=== PATIENT | female | born 1965 | race Hispanic/Latino ===

== ENCOUNTER → 2016-12-04 | Outpatient (CLI) | payer BC ==
[~2016-12-04] MED LIST: AMOXICILLIN500 MG PO; BENADRYL50 MG PO; CYANOCOBALAM1000 MCG PO; CYCLOBENZAPRINE10 MG PO; FLAGYL500 MG PO; IBUPROFEN400 MG PO; KEFLEX500 MG PO; LIDOCAINE700 MG TD; LORCET 5-325 M1 EACH PO; LORTAB 5-325 M1 EACH PO; PHENAZOPYRIDIN100 MG PO; PREDNISONE10 MG PO; PROTONIX40 MG PO; PYRIDIUM100 MG PO; TORADOL10 MG PO; VITAMIN C500 M1 PO; VITAMIN E100 UNIT PO
== END | disposition home or self-care (01) ==
LOC: CDC 14:47
DX: R94.31 Abnormal electrocardiogram [ECG] [EKG] (principal); R07.9 Chest pain, unspecified
CPT/HCPCS: 93000

== ENCOUNTER 2016-12-26 18:54 | Emergency (ER) | payer BC ==
[~2016-12-26] VITALS: Ht 162.6 cm; Wt 108.4 kg
[2016-12-26 19:57] LABS: HEMATOCRIT 39.7 % (36.0-46.0); MCH 31.3 PG (29.0-34.0); MCHC 34.5 G/DL (30.0-36.0); MCV 90.6 FL (83-99); MEAN PLAT.VOLUME 10.6 uM^3 (9.5-12.4); PLATELET COUNT 248 K/uL (156-360); RBC DIS.WIDTH-SD 38.8 % (39-53); RED BLOOD COUNT 4.38 M/uL (3.80-5.20); WHITE BLOOD COUNT 6.2 K/uL (4.1-10.2)
[2016-12-26 20:09] LABS: CHLORIDE 103 mEq/L (99-109); POTASSIUM 3.6 mEq/L (3.7-5.4); SODIUM 139 mEq/L (136-147)
[2016-12-26 20:11] LABS: GLUCOSE 102 mg/dL (70-99)
[2016-12-26 20:12] LABS: ANION GAP 14 MEQ/L (2-14)
[2016-12-26 20:13] LABS: TOTAL BILIRUBIN 0.6 mg/dL (0.0-1.0)
[2016-12-26 20:14] LABS: ALKALINE PHOSPHATASE 111 IU/L (3-129)
[2016-12-26 20:15] LABS: GFR ESTIMATE (CALCULATED) > 59 mL/min/
[2016-12-26 20:16] LABS: UREA NITROGEN (BUN) 14 mg/dL (9-23)
[2016-12-26 20:18] LABS: LIPASE 26 U/L (1.0-51.0)
[2016-12-26 20:24] LABS: QUANTITATIVE HCG < 4.0 MIU/ML
[2016-12-26 21:45] LABS: ADD MIUA? NO; BILIRUBIN NEGATIVE; BLOOD NEGATIVE; COLOR STRAW ((YELLOW)); GLUCOSE (STRIP) NEGATIVE; KETONES 5; LEUKOCYTES NEGATIVE; NITRITE NEGATIVE; PROTEIN (STRIP) NEGATIVE; SPECIFIC GRAVITY 1.008 (1.000-1.030); UCUL ADDED? NO; UROBILINOGEN 0.2 MG/DL (0.2-1.0)
[2016-12-27] MEDS ORDERED: PERCOCET 5/31 TABLET PO (01:41)
[2016-12-27] MEDS ORDERED: REGLAN10 MG PO (01:42)
[2016-12-27 01:55] VITALS: BP 138/72
== END 2016-12-27 02:05 | disposition home or self-care (01) ==
LOC: EME 18:54
DX: R10.10 Upper abdominal pain, unspecified (principal); R10.13 Epigastric pain; T50.995A Adverse effect of other drugs, medicaments and biological substances, initial encounter
CPT/HCPCS: 74020; 74177; 76705; 80053; 81003; 83690; 84702; 85027; 93005; 99281; 99285; J1200; J2270; J2405; J2765; J7030

== ENCOUNTER 2017-02-03 15:49 | Observation (INO) | payer BC ==
[~2017-02-03] VITALS: Ht 162.6 cm; Wt 108.3 kg
[~2017-02-03 15:49] MED LIST changes: +PERCOCET 5/31 TABLET PO; +REGLAN10 MG PO
[2017-02-03 17:11] LABS: HEMATOCRIT 39.6 % (36.0-46.0); MCH 31.4 PG (29.0-34.0); MCHC 34.1 G/DL (30.0-36.0); MCV 92.1 FL (83-99); PLATELET COUNT 262 K/uL (156-360); RBC DIS.WIDTH-SD 40.2 % (39-53); WHITE BLOOD COUNT 4.7 K/uL (4.1-10.2)
[2017-02-03 17:26] LABS: CHLORIDE 107 mEq/L (99-109); POTASSIUM 3.8 mEq/L (3.7-5.4); SODIUM 139 mEq/L (136-147)
[2017-02-03 17:28] LABS: GLUCOSE 148 mg/dL (70-99)
[2017-02-03 17:29] LABS: ANION GAP 13 MEQ/L (2-14)
[2017-02-03 17:30] LABS: TOTAL BILIRUBIN 0.4 mg/dL (0.0-1.0)
[2017-02-03 17:31] LABS: ALKALINE PHOSPHATASE 117 IU/L (3-129)
[2017-02-03 17:32] LABS: GFR ESTIMATE (CALCULATED) > 59 mL/min/
[2017-02-03 17:32] LABS: ADD MIUA? YES; BILIRUBIN NEGATIVE; BLOOD NEGATIVE; COLOR STRAW ((YELLOW)); GLUCOSE (STRIP) NEGATIVE; KETONES NEGATIVE; LEUKOCYTES TRACE; NITRITE NEGATIVE; PROTEIN (STRIP) NEGATIVE; SPECIFIC GRAVITY 1.006 (1.000-1.030); UROBILINOGEN 0.2 MG/DL (0.2-1.0)
[2017-02-03 17:33] LABS: UREA NITROGEN (BUN) 12 mg/dL (9-23)
[2017-02-03 17:35] LABS: LIPASE 26 U/L (1.0-51.0)
[2017-02-03 17:41] LABS: BACTERIA RARE /HPF; EPITHELIAL CELLS RARE /HPF; MUCUS NONE SEEN /LPF; RED BLOOD CELLS 0-5 /HPF (0-5); UCUL ADDED? NO; WHITE BLOOD CELLS 0-5 /HPF (0-5)
[2017-02-03 17:41] LABS: QUANTITATIVE HCG < 4.0 MIU/ML
[2017-02-03 17:52] LABS: CASTS NONE SEEN /LPF; CRYSTALS NONE SEEN
[2017-02-03] MEDS ORDERED: OMEPRAZOLE40 M1 PO (18:28)
[2017-02-03 23:30] VITALS: BP 133/77
[2017-02-04 04:18] VITALS: BP 98/53
[2017-02-04 07:42] LABS: ANION GAP 11 MEQ/L (2-14); CHLORIDE 111 MEQ/L (99-109); GFR ESTIMATE (CALCULATED) > 59 mL/min/; POTASSIUM 3.7 MEQ/L (3.7-5.4); SAMPLE HEMOLYSIS CHECK 0; SAMPLE ICTERIC CHECK 0; SAMPLE LIPEMIA CHECK 0; SODIUM 144 MEQ/L (136-147); UREA NITROGEN (BUN) 11 mg/dL (9-23)
[2017-02-04 07:47] LABS: GLUCOSE 91 mg/dL (70-99)
[2017-02-04 11:51] VITALS: BP 125/68
[2017-02-04 16:00] VITALS: BP 133/74
[2017-02-04] MEDS ORDERED: ZOFRAN4 MG PO (16:10)
[2017-02-04 20:19] VITALS: BP 112/57
[2017-02-05 00:48] VITALS: BP 121/60
[2017-02-05 03:35] VITALS: BP 123/62
[2017-02-05 07:21] VITALS: BP 130/82
[2017-02-05 09:29] LABS: ALKALINE PHOSPHATASE 107 IU/L (3-129); DIRECT BILIRUBIN 0.2 mg/dL (0.0-0.3); TOTAL BILIRUBIN 0.6 MG/DL (0.0-1.0)
[2017-02-05] MEDS ORDERED: BENTYL20 MG PO (10:21)
[2017-02-05] MEDS ORDERED: BENADRYL25 MG PO (10:21)
[2017-02-05] MEDS ORDERED: POLYETHYLENE GL17 GM PO (10:22)
== END 2017-02-05 12:22 | disposition home or self-care (01) ==
LOC: EME 15:49 → EDOF 21:58 → 5WEST 21:58
PROVIDERS: Family Medicine; Physician Assistant
DX: R10.9 Unspecified abdominal pain (principal); K76.0 Fatty (change of) liver, not elsewhere classified; E66.9 Obesity, unspecified; Z68.41 Body mass index [BMI] 40.0-44.9, adult; K21.9 Gastro-esophageal reflux disease without esophagitis; K59.00 Constipation, unspecified; L27.0 Generalized skin eruption due to drugs and medicaments taken internally; T39.8X5A Adverse effect of other nonopioid analgesics and antipyretics, not elsewhere classified, initial encounter
CPT/HCPCS: 74000; 74177; 74183; 80048; 80053; 80076; 81003; 83605; 83690; 84702; 85027; 93005; 99281; 99285; C9113; G0378; J1200; J1644; J1885; J2060; J2270; J2405; J2765; J3010; J7030; J7040; S0028

== ENCOUNTER 2017-10-03 23:01 | Emergency (ER) | payer BC ==
[~2017-10-03] VITALS: Ht 160 cm; Wt 106.8 kg
[~2017-10-03 23:01] MED LIST changes: +BENADRYL25 MG PO; +BENTYL20 MG PO; +OMEPRAZOLE40 M1 PO; +POLYETHYLENE GL17 GM PO; +ZOFRAN4 MG PO
[2017-10-04 00:13] LABS: EOSINOPHIL COUNT 0.1 K/uL (0-0.3); HEMATOCRIT 35.2 % (36.0-46.0); IMMATURE GRANULOCYTE (%) 0.3 % (0.0-0.7); LYMPHOCYTE COUNT 2.9 K/uL (1.0-2.8); MCH 31.6 PG (29.0-34.0); MCHC 34.4 G/DL (30.0-36.0); MCV 91.9 FL (83-99); MONOCYTE (%) 6.5 % (3-12); MONOCYTE COUNT 0.4 K/uL (0-0.8); NEUTROPHIL (%) 46.7 % (45-76); PLATELET COUNT 231 K/uL (156-360); RBC DIS.WIDTH-CV 12.1 % (11.8-14.6); RBC DIS.WIDTH-SD 40.8 % (39-53); RED BLOOD COUNT 3.83 M/uL (3.80-5.20); WHITE BLOOD COUNT 6.5 K/uL (4.1-10.2)
[2017-10-04 00:18] LABS: CHLORIDE 106 mEq/L (99-109); POTASSIUM 3.6 mEq/L (3.7-5.4); SODIUM 138 mEq/L (136-147)
[2017-10-04 00:20] LABS: GLUCOSE 105 mg/dL (70-99)
[2017-10-04 00:22] LABS: ANION GAP 11 MEQ/L (2-14)
[2017-10-04 00:24] LABS: GFR ESTIMATE (CALCULATED) > 59 mL/min/
[2017-10-04 00:25] LABS: UREA NITROGEN (BUN) 9 mg/dL (9-23)
[2017-10-04] MEDS ORDERED: MORPHINE SULFAT15 M1 PO (02:47)
[2017-10-04 02:51] VITALS: BP 119/69
== END 2017-10-04 03:09 | disposition home or self-care (01) ==
LOC: EME 23:01
PROVIDERS: Emergency Medicine
DX: G89.18 Other acute postprocedural pain (principal); M25.511 Pain in right shoulder; K21.9 Gastro-esophageal reflux disease without esophagitis
CPT/HCPCS: 80048; 85025; J1885; J2270